=== PATIENT | male | born 1950 | race Caucasian/White ===

== ENCOUNTER 2022-05-01 19:53 | Emergency (ER) | payer MEDICARE, SELFPAY ==
[2022-05-01] VITALS (15 sets, daily range): BP systolic 177–185; BP diastolic 89–111; PULSE 63–101; RESP 12–20; TEMP 36.3–36.8; O2SAT 91–100
--- NOTE | ~2022-05-01 | XR_ITS ---
Clinical Indication: Chest pain. Reported history of nephrectomy on 04/22/2022. AP and lateral views of the chest: Comparison: 02/24/2014 Findings: The lungs are clear, without evidence of focal consolidation or pleural effusion. Cardiome diastinal silhouette is within normal limits. Osseous structures are intact. Pneumoperitoneum is note d. Impression: Moderate pneumoperitoneum. Though there is reported history of nephrectomy on 04/22/2022, the amount of free air is greater than would typically be expected for surgery nearly 10 days ago. Correlate clini rodger for any possibility of bowel perforation versus other iatrogenic air. Consider CT scan to [facility] evaluate the abdomen/pelvis, as indicated. Clear lungs. Reviewed, dictated and finalized at location . Impression: Moderate pneumoperitoneum. Though there is reported history of nephrectomy on , the amount of free air is greater than would typically be expected for surgery nearly 10 days ago. Correlate clinically for any possibility of bowel perforation versus other iatrogenic air. Consider CT scan to further evaluate t he abdomen/pelvis, as indicated. Clear lungs.
--- NOTE | ~2022-05-01 | CT_ITS ---
Clinical Indication: Chest pain, abdominal pain, recent surgery CT Scan of the Chest, Abdomen, and Pelvis with Contrast: Technique: Contiguous sections were acquired throughout the chest, abdomen, and pelvis after intraven ous administration of 100 cc of Omnipaque 350. Dose reduction technique was used on this scan by uti harrising automated exposure control and iterative reconstruction technique. The dose-length product (DL P) was 941.05 mGy-cm. Findings: There is no evidence of any significant mediastinal, hilar or axillary lymphadenopathy. The mediastin al soft tissues appear normal. No pulmonary embolus evident. No aortic aneurysm or dissection. There is no evidence of pleural or pericardial effusion. The lungs are clear. No pulmonary nodules or infiltrates are noted. Several small hepatic cysts are present. Calcified gallstones are present. The spleen, pancreas, and adrenal glands are within normal limits. Patient is status post right nephrectomy. Small amount of fl uid present in the right renal fossa, compatible with postoperative change. Simple left renal cyst no hernandez. No evidence of aortic aneurysm. No lymphadenopathy. No bowel obstruction or bowel wall thickening. No abscess evident. Moderate pneumoperitoneum present. There is also subcutaneous soft tissue gas along the anterior abdominal wall in the right side, exte nding into the right inguinal region and right scrotum.. Chong catheter present within the urinary bladder. Prostate gland and seminal vesicles are unremarkab le. Small amount of pelvic ascites present. Impression: Moderate pneumoperitoneum, as well as fairly extensive subcutaneous soft tissue gas along the right a nterior abdominal wall extending into the right inguinal region right scrotum. Given lack of any othe r significant inflammatory changes, findings are most likely related to recent surgery. Correlate cli nically for signs symptoms of bowel perforation/sepsis. Small amount of fluid at the right renal fossa is compatible with post nephrectomy change. No distinc t evidence for abscess/superinfection by CT imaging. Again, correlate clinically and with relevant la bwork. Small amount of pelvic ascites. Cholelithiasis. No pulmonary embolus or other significant pulmonary abnormality. Reviewed, dictated and finalized at location M. Impression: Moderate pneumoperitoneum, as well as fairly extensive subcutaneous soft tissue gas along the right anterior abdominal wall extending into the right inguinal region right scrotum. Given lack of any other significant inflammatory changes, findings are most likely related to recent surgery. Correlate clinically for s igns symptoms of bowel perforation/sepsis. Small amount of fluid at the right renal fossa is compatible with post nephrect carmela change. No distinct evidence for abscess/superinfection by CT imaging. Agai n, correlate clinically and with relevant labwork. Small amount of pelvic ascites. Cholelithiasis. No pulmonary embolus or other significant pulmonary abnormality.
--- NOTE | 2022-05-01 19:56 | ECG_ITS ---
Measurements Intervals [place] Rate: 72 P: 52 AR: 209 QRS: 62 QRSD: 104 T: 61 QT: 418 QTc: 457 Interpretive Statements SINUS RHYTHM WITH SINUS ARRHYTHMIA BORDERLINE AV CONDUCTION DELAY BORDERLINE R WAVE PROGRESSION, ANTERIOR LEADS BORDERLINE T WAVE ABNORMALITY- ANTERIOR LEADS BASELINE ARTIFACT- I, II, III, AVR, AVL, AVF, V4-V6 BORDERLINE ECG NO PREVIOUS ECG AVAILABLE FOR COMPARISON Electronically Signed On 05-01-2022 20:44:19 CDT by Mich Boone D.O.
[2022-05-01 20:05] LABS: Basophils Absolute Auto 0.1 K/mm3 (0.0-0.1); Basophils Percent Auto 0.7 % (0.2-1.2); Eosinophils Absolute Auto 0.4 K/mm3 (0-0.3); Eosinophils Percent Auto 3.4 % (0-4.4); Hematocrit 42.8 % (42.0-52.0); Hemoglobin 14.9 g/dL (14.0-18.0); Immature Granulocyte Absolute 0.09 K/mm3 (0.00-0.031); Immature Granulocyte Percent A 0.8 % (0-0.5); Lymphocytes Absolute Auto 2.14 K/mm3 (0.9-3.2); Lymphocytes Percent Auto 20.1 % (18.3-44.2); Mean Corpuscular HGB Conc 34.8 g/dl (32-36); Mean Corpuscular Hemoglobin 31.2 pg (26-34); Mean Corpuscular Volume 89.5 fl (80-100); Mean Platelet Volume 8.5 fl (7.4-10.4); Monocytes Absolute Auto 0.6 K/mm3 (0.1-0.6); Neutrophils Absolute Auto 7.4 K/mm3 (1.3-6.7); Platelet Count Result 231 k/mm3 (150-375); Red Blood Count 4.78 M/mm3 (4.6-6.20); Red Cell Distribution Width 12.5 % (11.5-14.5); White Blood Count 10.7 K/mm3 (4.5-10.0)
[2022-05-01 20:16] LABS: Alanine Aminotransferase 24 U/L (6-50); Albumin Level 4.5 g/dL (3.5-5.1); Alkaline Phosphatase 75 U/L (38-126); Anion Gap 10 mmol/L (8-16); Aspartate Amino Transferase 25 U/L (17-59); Bilirubin,Total 0.8 mg/dL (0.2-1.3); Blood Urea Nitrogen 17 mg/dL (9-20); Calcium 9.3 mg/dL (8.4-10.2); Carbon Dioxide 26 mmol/L (22-30); Chloride 102 mmol/L (98-107); Estimated CRCL calculation 34 ml/min; Estimated Glomerular Filt Rate 37; Glucose 166 mg/dL (65-110); INR 1.2; Lipase 97 U/L (23-300); Partial Thromboplastin Time 30.6 SECONDS (22.3-36.8); Potassium 4.2 mmol/L (3.4-5.0); Prothrombin Time 14.4 Seconds (11.1-14.7); Sodium 138 mmol/L (137-145)
[2022-05-01 20:28] LABS: Troponin I < 0.012 ng/mL (0.000-0.034)
--- NOTE | 2022-05-01 21:07 | PC.NURSE ---
Patient complains of more abdominal pain that chest pain. patient had recent abdomen surgery to remove a kidney.
[2022-05-01] MEDS: HYDROmorphone HCL INJ (*CRX) 1 MG/ML SYR IV PUSH ×2 (21:11→22:29)
[2022-05-01 22:36] LABS: Appearance Urine Clear (Clear); Bacteria Urine None Seen /hpf; Bilirubin Urine Negative (Negative); Blood Urine 2+ (Negative); Color Urine Yellow (Yellow); Glucose Urine UA Negative (Negative); Ketones Urine 1+ mg/dL (Negative); Leukocyte Esterase Ur Negative LEU/UL (Negative); Nitrate Urine Negative (Negative); Non Pathogenic Casts 0-2; Protein Urine 1+ mg/dL (Negative); RBC Urine 21-50 /hpf (0-2); Squamous Epithelial Cell Urine None seen /hpf (Few); WBC Urine 0-5 /hpf; pH Urine 7.5 (5.0-9.0)
[2022-05-01 22:38] LABS: Add Urine Microscopic? YES
--- NOTE | 2022-05-01 23:03 | ED.GENADULT ---
HPI - General Adult General Chief complaint: Abdominal Pain Stated complaint: chest pain Time Seen by Provider: 05/01/22 20:14 History of Present Illness HPI narrative: Patient is a 71-year-old gentleman who presents with abdominal pain. Patient reports he had a nephrectomy on the second at [facility] and reports that today he started having worsening abdominal pain the patient did not call the surgeon denies fever and came to the emergency department for evaluation. Patient reports the pain is worse with movement and improved with rest Related Data Allergies Allergy/AdvReac Type Severity Reaction Status Date / Time No Known Allergies Allergy Verified 05/01/22 19:54 Review of Systems Review of Systems: A 10 system review of systems was completed on the patient and is negative except for what is stated in the HPI. Nursing and ancillary documentation was reviewed. Exam Narrative: GENERAL: Well-appearing, well-nourished, and in no acute distress. HEAD: Normocephalic, atraumatic. EYES: PERRLA and EOMI. ENT: Nares clear, no rhinorrhea or epistaxis. Mucous membranes moist. NECK: Supple. CHEST: Clear to auscultation. No respiratory distress. HEART: Regular rate and rhythm. No murmur heard. Normal peripheral pulses. ABDOMEN: Soft, diffusely tender to palpation, nondistended, normal active bowel sounds. Well approximated incisions present on the abdomen without bleeding and without drainage EXTREMITIES: Normal range of motion. No edema. SKIN: Warm, dry, no rash. NEURO: No focal deficits. Alert and oriented x3. PSYCH: Normal mood and affect. Course Vital Signs Vital signs: Vital Signs Temperature 36.3 C L 05/01/22 19:57 Pulse Rate 101 H 05/01/22 19:57 Respiratory Rate 20 05/01/22 19:57 Blood Pressure 185/111 H 05/01/22 19:57 Pulse Oximetry 98 05/01/22 19:57 Oxygen Delivery Room Air 05/01/22 19:57 Temperature 36.3 C L 05/01/22 19:57 Pulse Rate 74 05/01/22 22:48 Respiratory Rate 19 05/01/22 22:48 Blood Pressure 179/89 H 05/01/22 22:01 Pulse Oximetry 94 05/01/22 22:48 Oxygen Delivery Room Air 05/01/22 19:57 Medical Decision Making [facility] Narrative Medical decision making narrative: Differential diagnosis includes postoperative infection, postoperative perforation, wound dehiscence, renal failure, PE Laboratory studies were obtained which showed a white blood cell count of 10.7 creatinine is 1.8 urinalysis showed no evidence of UTI CTA chest and abdomen pelvis showed no evidence of pulmonary embolism, there is postoperative free air present but no signs of perforation or intra-abdominal infection The patient's pain was controlled in the emergency department patient will be discharged home to follow-up with his surgeon at [facility] Vital Signs Vital Signs: Vital Signs Temperature 36.3 C L 05/01/22 19:57 Pulse Rate 101 H 05/01/22 19:57 Respiratory Rate 20 05/01/22 19:57 Blood Pressure 185/111 H 05/01/22 19:57 Pulse Oximetry 98 05/01/22 19:57 Oxygen Delivery Room Air 05/01/22 19:57 Temperature 36.3 C L 05/01/22 19:57 Pulse Rate 74 05/01/22 22:48 Respiratory Rate 19 05/01/22 22:48 Blood Pressure 179/89 H 05/01/22 22:01 Pulse Oximetry 94 05/01/22 22:48 Oxygen Delivery Room Air 05/01/22 19:57 Lab Data 05/01/22 19:59 05/01/22 19:59 Labs: Lab Results 05/01/22 05/01/22 05/01/22 Range/Units 19:59 19:59 19:59 WBC 10.7 H (4.5-10.0) K/mm3 RBC 4.78 (4.6-6.20) M/mm3 Hgb 14.9 (14.0-18.0) g/dL Hct 42.8 (42.0-52.0) % MCV 89.5 (80-100) fl MCH 31.2 (26-34) pg MCHC 34.8 (32-36) g/dl RDW 12.5 (11.5-14.5) % Plt Count 231 (150-375) k/mm3 MPV 8.5 (7.4-10.4) fl Immature Gran % (Auto) 0.8 H (0-0.5) % Neut % (Auto) 69.0 (45.5-73.1) % Lymph % (Auto) 20.1 (18.3-44.2) % [place] % (Auto) 6.0 (2.6-8.5) % Eos % (Auto) 3.4 (0-4.4) % Baso % (Auto) 0.7
--- NOTE | 2022-05-01 23:06 | PC.NURSE ---
Report received from OSCAR Yadav. Assumed care of patient at this time.
== END 2022-05-01 23:31 | disposition home or self-care (01) ==
PROVIDERS: Emergency Provider Emergency Medicine
DX: G89.18 Other acute postprocedural pain (principal); Z90.5 Acquired absence of kidney
CPT/HCPCS: 36415; 71046; 71275; 74177; 80053; 81001; 83690; 84484; 85025; 85610; 85730; 93005; 96374; 96376; 99284; J1170; Q9967

== ENCOUNTER 2022-07-28 23:06 | Emergency (ER) | payer MEDICARE, SELFPAY ==
--- NOTE | ~2022-07-28 | XR_ITS ---
Portable chest x-ray Comparison: 05/01/2022 Clinical History: Chest pain Findings: Lungs are clear, without focal consolidation or pleural effusion. Stable eventration/eleva tion of the right hemidiaphragm. Cardiomediastinal silhouette is stable. Bones and soft tissues are unremarkable. Impression: Clear lungs. Stable elevation/eventration of the right hemidiaphragm. Reviewed, dictated and finalized at location M. Impression: Clear lungs. Stable elevation/eventration of the right hemidiaphragm.
--- NOTE | ~2022-07-28 | CT_ITS ---
CT of the Abdomen and Pelvis: Indication: Abdominal pain Technique: 2.5 mm axial scans were obtained through the abdomen and pelvis following intravenous adm inistration of 100 cc of Omnipaque 350. Dose reduction technique was used on this scan by utilizing a utomated exposure control and iterative reconstruction technique. The dose-length product (DLP) was 5 11.99 mGy-cm. COMPARISON: 05/01/2022 Findings: Scans through the lung bases are unremarkable. Small left hepatic lobe cysts are present. Small calcified gallstones are present, with possible mini mal gallbladder wall thickening. The spleen, pancreas, adrenals and left kidney are within normal webb its. Status post right nephrectomy. No evidence of aortic aneurysm. There are shotty lymph nodes man g the left external iliac chain in the left lower quadrant, unchanged. No bowel obstruction or bowel wall thickening. There is no evidence to suggest acute appendicitis. Images through the pelvis were performed. Urinary bladder unremarkable. Prostate gland is enlarged. N o ascites. Impression: Cholelithiasis, with possible minimal gallbladder wall thickening, and stones at the gallbladder neck . Consider HIDA scan to further evaluate for acute cholecystitis, if clinically indicated. Enlarged prostate gland. Reviewed, dictated and finalized at location . Impression: Cholelithiasis, with possible minimal gallbladder wall thickening, and stones a t the gallbladder neck. Consider HIDA scan to further evaluate for acute cholec ystitis, if clinically indicated. Enlarged prostate gland.
[2022-07-28 23:08] VITALS: BP 171/78; PULSE 75; RESP 20; TEMP 36.8; O2SAT 98
[2022-07-28 23:38] VITALS: BP 155/93; PULSE 72; RESP 11; O2SAT 96
--- NOTE | 2022-07-28 23:40 | PC.NURSE ---
Pt c/o RUQ pain onset 1630 after he coughed. Pt states he called the after hours nurse line at [facility] who told him to come to the ED because he may be having a heart attack. Pt states the burning pain radiates across his abdomen and up into his chest. Pain is intermittent and seems to come and go at random. He denies n/v/d. He also c/o lower back pain but he has this every day.
[2022-07-28] MEDS: SODIUM CHLORIDE 0.9% IV 1,000 ML 999 ML IV CONT (23:59)
[2022-07-29 00:01] VITALS: BP 139/80; PULSE 66; RESP 16; O2SAT 95
[2022-07-29 00:09] LABS: Basophils Percent Auto 0.6 % (0.2-1.2); Eosinophils Absolute Auto 0.1 K/mm3 (0-0.3); Eosinophils Percent Auto 1.8 % (0-4.4); Hematocrit 42.8 % (42.0-52.0); Immature Granulocyte Absolute 0.03 K/mm3 (0.00-0.031); Immature Granulocyte Percent A 0.4 % (0-0.5); Immature Platelet Fraction Pct 2.3 % (0.9-11.2); Lymphocytes Absolute Auto 2.11 K/mm3 (0.9-3.2); Lymphocytes Percent Auto 30.9 % (18.3-44.2); Mean Corpuscular Hemoglobin 31.8 pg (26-34); Mean Corpuscular Volume 90.7 fl (80-100); Mean Platelet Volume 9.3 fl (7.4-10.4); Monocytes Absolute Auto 0.6 K/mm3 (0.1-0.6); Monocytes Percent Auto 9.1 % (2.6-8.5); Neutrophils Absolute Auto 3.9 K/mm3 (1.3-6.7); Neutrophils Percent Auto 57.2 % (45.5-73.1); Platelet Count Result 156 k/mm3 (150-375); Red Blood Count 4.72 M/mm3 (4.6-6.20); Red Cell Distribution Width 12.4 % (11.5-14.5); White Blood Count 6.8 K/mm3 (4.5-10.0)
--- NOTE | 2022-07-29 00:12 | ED.GENADULT ---
HPI - General Adult General Chief complaint: Urogenital-Male <Soren Flores PA-C - Last Filed: 07/29/22 04:02> Stated complaint: flank pain <MESFIN Means Last Filed: 07/29/22 04:02> Time Seen by Provider: 07/28/22 23:36 <MESFIN Means Last Filed: 07/29/22 04:02> Source: patient <MESFIN Means Last Filed: 07/29/22 04:02> Mode of arrival: ambulatory <MESFIN Means Last Filed: 07/29/22 04:02> Limitations: no limitations <MESFIN Means Last Filed: 07/29/22 04:02> History of Present Illness HPI narrative: This is a 72-year-old male with PMH of right nephrectomy, GERD who presents to the ED with chief complaint of right upper quadrant pain and epigastric pain beginning this afternoon. Reports a pressure-like pain that radiates to the right side and superiorly from the epigastrium. States he has been taking his Pepcid for heartburn. Denies any shortness of breath. Denies any nausea or vomiting. Denies diaphoresis. States he was able to eat this afternoon and symptoms of this pain followed about 3 hours later. Denies urinary symptoms or problems with bowel movements. Other abdominal past surgical history of hernia repair many years ago. <MESFIN Means Last Filed: 07/29/22 04:02> Related Data Allergies/adverse reactions: Allergies Allergy/AdvReac Type Severity Reaction Status Date / Time No Known Allergies Allergy Verified 05/01/22 19:54 <MESFIN Means Last Filed: 07/29/22 04:02> Review of Systems Review of Systems: CONSTITUTIONAL: Denies fever, chills, or sweats. EYES: Denies visual changes, redness, or discharge. ENT: Denies rhinorrhea, congestion, sore throat, or otalgia. CARDIOVASCULAR: Denies chest pain, palpitations, or edema. RESPIRATORY: Denies cough or dyspnea. GASTROINTESTINAL: See HPI GENITOURINARY: Denies dysuria or hematuria. SKIN: Denies rash or itching. MUSCULOSKELETAL: Denies back pain, joint pain, or myalgia. NEUROLOGIC: Denies headache, numbness, dizziness, or weakness. PSYCHIATRIC: Denies anxiety or depression. <Soren Flores PA-C - Last Filed: 07/29/22 04:02> Exam Narrative: GENERAL: Well-appearing, well-nourished, and in no acute distress. HEAD: Normocephalic, atraumatic. EYES: PERRLA and EOMI. ENT: Nares clear, no rhinorrhea or epistaxis. Mucous membranes moist. Oropharynx without tonsillar hypertrophy exudate or other lesions. NECK: Supple. No adenopathy or masses. CHEST: No respiratory distress. Clear to auscultation. No wheezes rales or rhonchi HEART: Regular rate and rhythm. No murmur heard. Normal peripheral pulses. ABDOMEN: Equivocal Burgess sign. Negative McBurney's point. Negative peritoneal signs. Negative flank tenderness bilaterally. Mild tenderness to the epigastrium and right upper quadrant. Nondistended, normal active bowel sounds. MSK: Normal range of motion. No edema. SKIN: Warm, dry, no rash. NEURO: Alert and oriented x3. No focal deficits. PSYCH: Normal mood and affect. <Soren Flores PA-C - Last Filed: 07/29/22 04:02> Course Course Emergency Course: Patient is declining pain meds. <Soren Flores PA-C - Last Filed: 07/29/22 04:02> MEDICAL TECHNOLOGIST CHIEF/PA Physician Supervision This is a was performed by both a physician and an APC. I performed all aspects of the MDM as documented w/ the following additions: 72-year-old male presenting with right upper quadrant pain. Workup was unremarkable.. CT showed cholelithiasis without evidence of infection. This was explained to the patient he is comfortable following up his surgeon.All questions answered. Patient in agreement w/ disposition. <Hardy Foote MD - Last Filed: 07/29/22 05:44> Vital Signs Vital signs: Vital Signs Temperature 98.2 F 07/28/22 23:08 Pulse Rate 75 07/28/22 23:08 Respiratory Rate 20 07/28/22 23:08 Blood Pressure 171/78 H 07/28/22 23:08 Pulse Oximetry 98
--- NOTE | 2022-07-29 00:13 | ECG_ITS ---
Measurements Intervals [place] Rate: 62 P: 88 CO: 220 QRS: 11 QRSD: 96 T: 28 QT: 400 QTc: 408 Interpretive Statements SINUS RHYTHM WITH FIRST DEGREE AV BLOCK BORDERLINE ECG COMPARED TO ECG 05/01/2022 19:57:52 NO SIGNIFICANT DIFFERENCE t Electronically Signed On 07-29-2022 12:44:25 CDT by Dev Petersen M.D.
[2022-07-29 00:20] LABS: Alanine Aminotransferase 21 U/L (6-50); Albumin Level 4.7 g/dL (3.5-5.1); Alkaline Phosphatase 44 U/L (38-126); Anion Gap 7 mmol/L (8-16); Aspartate Amino Transferase 24 U/L (17-59); Bilirubin,Total 0.6 mg/dL (0.2-1.3); Blood Urea Nitrogen 32 mg/dL (9-20); Calcium 9.1 mg/dL (8.4-10.2); Carbon Dioxide 29 mmol/L (22-30); Chloride 103 mmol/L (98-107); Estimated CRCL calculation 34 ml/min; Estimated Glomerular Filt Rate 37; Glucose 105 mg/dL (65-110); Lipase 91 U/L (23-300); Potassium 4.1 mmol/L (3.4-5.0); Sodium 139 mmol/L (137-145)
[2022-07-29 00:49] LABS: Troponin I < 0.012 ng/mL (0.000-0.034)
[2022-07-29 01:34] VITALS: BP 156/89; PULSE 62; RESP 16; O2SAT 98
[2022-07-29 02:01] VITALS: BP 139/80; PULSE 63; RESP 18; O2SAT 96
[2022-07-29 02:31] VITALS: BP 133/89; PULSE 60; RESP 18; O2SAT 96
--- NOTE | 2022-07-29 05:06 | PC.NURSE ---
Called lab to inquire why pt's repeat troponin isn't running. [place] states he never received the tube of blood. Blood redrawn and hand delivered to lab. Pt updated on delay of care.
[2022-07-29 05:34] LABS: Troponin I < 0.012 ng/mL (0.000-0.034)
[2022-07-29 05:52] VITALS: BP 144/82; PULSE 64; RESP 18; O2SAT 97
== END 2022-07-29 05:53 | disposition home or self-care (01) ==
PROVIDERS: Emergency Provider Physician Assistant; PCP Family Medicine
DX: K29.70 Gastritis, unspecified, without bleeding (principal); K80.20 Calculus of gallbladder without cholecystitis without obstruction; K21.9 Gastro-esophageal reflux disease without esophagitis; Z90.5 Acquired absence of kidney; I44.0 Atrioventricular block, first degree; N40.0 Benign prostatic hyperplasia without lower urinary tract symptoms
CPT/HCPCS: 36415; 71045; 74177; 80048; 80076; 83690; 84484; 85025; 85055; 93005; 96360; 99284; J7030; Q9967